=== PATIENT | female | born 1985 | race Caucasian/White ===

== ENCOUNTER 2021-11-17 17:29 | Emergency (ER) | payer MEDICAID ==
[~2021-11-17] VITALS: Ht 165.1 cm; Wt 70.5 kg
[2021-11-17] MEDS ORDERED: LOSA-370 PO (17:47)
[2021-11-17 18:31] LABS: COVID AG,FIA SOURCE NASOPHARYNGEAL
[2021-11-17] MEDS ORDERED: ACETAMINOPHEN 325 MG TABLET PO ONE (20:00)
[2021-11-17 20:06] VITALS: BP 149/93
== END 2021-11-17 20:10 | disposition left against medical advice (07) ==
LOC: EDBD 17:34 → EMS 17:34
DX: O99.511 Diseases of the respiratory system complicating pregnancy, first trimester (principal); U07.1 COVID-19; I10 Essential (primary) hypertension; O20.0 Threatened abortion; Z3A.01 Less than 8 weeks gestation of pregnancy
CPT/HCPCS: 87426; 99283; U0003